=== PATIENT | female | born 1990 | race American Indian/Alaskan Native ===

== ENCOUNTER 2017-09-16 18:20 | Emergency (ER) | payer OTHER ==
[~2017-09-16] VITALS: Ht 149.9 cm; Wt 86.2 kg
[~2017-09-16 18:20] MED LIST: FLONASE ALLERG9.9 ML NS; GLUCOPHAGE500 MG PO; ZESTRIL10 MG PO; ZOLOFT100 MG PO
[2017-09-16] MEDS ORDERED: TYLENOL COLD &1 EACH PO (19:14)
[2017-09-16] MEDS ORDERED: TAMIFLU75 MG PO (20:22)
== END 2017-09-16 20:45 | disposition home or self-care (01) ==
LOC: ED 18:20
DX: J10.1 Influenza due to other identified influenza virus with other respiratory manifestations (principal); Z88.0 Allergy status to penicillin; Z90.89 Acquired absence of other organs; Z79.84 Long term (current) use of oral hypoglycemic drugs; Z79.899 Other long term (current) drug therapy
CPT/HCPCS: 87502; 99283

== ENCOUNTER → 2022-08-09 | Emergency (ER) | payer BC ==
[~2022-08-09] VITALS: Ht 149.9 cm; Wt 90.7 kg
[~2022-08-09] MED LIST changes: +FLUOXETINE HCL20 MG PO; +LIDOCAINE HCL100 ML MT; +LISINOPRIL5 MG PO; +PIOGLITAZONE HC45 MG PO; +ROSUVASTATIN CA10 MG PO; +TAMIFLU75 MG PO; +TYLENOL COLD &1 EACH PO
== END ==
LOC: ED 20:25
DX: J02.9 Acute pharyngitis, unspecified (principal); Z88.0 Allergy status to penicillin; Z79.899 Other long term (current) drug therapy; Z79.84 Long term (current) use of oral hypoglycemic drugs; Z20.822 Contact with and (suspected) exposure to COVID-19
CPT/HCPCS: 87081; 87502; 87880; 99283; U0003

== ENCOUNTER 2024-11-09 18:46 | Inpatient (IN) | payer BC ==
[~2024-11-09] VITALS: Ht 149.9 cm; Wt 88.5 kg
[2024-11-09 20:58] VITALS: BP 147/84
[2024-11-09] MEDS ORDERED: LIDOCAINE 2% VISCOUS 6 ML SYR TOP ONE ×2 (21:00)
[2024-11-09] MEDS ORDERED: miSOPROStoL 25 MCG TAB PV SCH (21:00)
[2024-11-09] MEDS ORDERED: CALCIUM CARBONATE 500 MG CHEW PO PRN (21:00)
[2024-11-09] MEDS ORDERED: INSULIN NPH HUMAN ISOPHANE 100 UNIT/ML ML SUB-Q SCH (21:00)
[2024-11-09] MEDS ORDERED: MAGNESIUM HYDROXIDE/AL HYDROX 30 ML CUP PO PRN (21:00)
[2024-11-09] MEDS ORDERED: Insulin Regular, Human 100 UNIT/ML ML SUB-Q ONE (21:15)
[2024-11-09 21:23] LABS: BASOPHILS 0.5 % (0-2); HEMATOCRIT 36.3 % (35.0-50.0); HEMOGLOBIN 12.2 g/dL (12.0-18.0); LYMPHOCYTES 15.6 % (24-44); MCH 28.6 (27-36); MCHC 33.5 g/dl (30-36); MCV 85.5 fl (81-99); MONOCYTES 5.5 % (0-12); NEUTROPHILS 77.4 % (39-80); PLATELET COUNT 201 K/uL (140-440); RBC 4.25 M/ul (4.3-5.7); RDW 14.1 (10.5-15.0)
[2024-11-09 21:38] LABS: CREATININE, RANDOM URINE 43.29 mg/dL (NOT ESTABLISHED); PROTEIN/CREATININE RATIO 0.48 mg/mg (0.010-0.107)
[2024-11-09 21:45] LABS: ALBUMIN 2.2 g/dL (3.4-5.0); ALBUMIN/GLOBULIN RATIO 0.54 (1.1-2.4); ANION GAP 13.7 (7-21); BILIRUBIN, TOTAL 0.5 mg/dL (0.2-1.0); BUN/CREATININE RATIO 17.24 (6.0-28.6); CREATININE, SERUM 0.58 mg/dL (0.55-1.02); POTASSIUM 3.7 mmol/L (3.5-5.1); PROTEIN, TOTAL 6.3 g/dL (6.4-8.2)
[2024-11-09 21:49] LABS: AMPHETAMINES, URINE NEGATIVE (NEGATIVE); BARBITURATES, URINE NEGATIVE (NEGATIVE); BENZODIAZEPINE, URINE NEGATIVE (NEGATIVE); BUPRENORPHINE, URINE NEGATIVE (NEGATIVE); CANNABINOID, URINE NEGATIVE (NEGATIVE); COCAINE, URINE NEGATIVE (NEGATIVE); ECSTASY, URINE NEGATIVE (NEGATIVE); FENTANYL, URINE NEGATIVE (NEGATIVE); METHADONE, URINE NEGATIVE (NEGATIVE); OPIATES, URINE NEGATIVE (NEGATIVE); OXYCODONE, URINE NEGATIVE (NEGATIVE); PHENCYCLIDINE, URINE NEGATIVE (NEGATIVE)
[2024-11-09 21:57] LABS: ABO A; ANTIBODY SCREEN NEGATIVE; RH POSITIVE
[2024-11-09] MEDS ORDERED: INSULIN GLARGINE-YFGN 100 UNIT/ML ML SUB-Q SCH (23:00)
[2024-11-10] MEDS ORDERED: miSOPROStoL 25 MCG TAB PV SCH
[2024-11-10] MEDS ORDERED: DEXTROSE 5% - NACL 0.45% 1,000 ML IV SCH (00:15)
[2024-11-10] MEDS ORDERED: IBLOOD GLUCOSE TEST STRIP 1 EA TEST XX PRN (00:15)
[2024-11-10] MEDS ORDERED: DEXTROSE 50% 50 ML SYR IV PRN ×2 (00:15)
[2024-11-10] MEDS ORDERED: INSULIN REGULAR IN 0.9 % NACL 100 ML IV SCH (00:15)
[2024-11-10] MEDS ORDERED: Insulin Regular, Human 100 UNIT/ML ML IV PRN (00:15)
[2024-11-10] MEDS ORDERED: DEXTROSE 5% 1,000 ML IV PRN (00:15)
[2024-11-10] MEDS ORDERED: GLUCAGON,HUMAN RECOMBINANT 1 MG/ML VIAL SUB-Q PRN (00:15)
[2024-11-10] MEDS ORDERED: SODIUM CHLORIDE 0.45% 1,000 ML IV SCH (00:15)
[2024-11-10] MEDS ORDERED: IBLOOD GLUCOSE TEST STRIP 1 EA TEST XX SCH (01:00)
[2024-11-10] MEDS ORDERED: IBLOOD GLUCOSE TEST STRIP 1 EA TEST VI SCH (01:00)
[2024-11-10] MEDS ORDERED: Insulin Regular, Human 100 UNIT/ML ML IV ONE (07:00)
[2024-11-10] MEDS ORDERED: INSULIN GLARGINE-YFGN 100 UNIT/ML ML SUB-Q ONE (07:00)
[2024-11-10] MEDS ORDERED: ROPIVACAINE 0.2% 200 ML BAG ONE (09:48)
[2024-11-10] MEDS ORDERED: fentaNYL citrate 100 MCG/2 ML VIAL ONE (09:48)
[2024-11-10] MEDS ORDERED: LACTATED RINGER'S 500 ML IV PRN (10:30)
[2024-11-10] MEDS ORDERED: ROPIVACAINE 0.2% 200 ML BAG EPIDURAL SCH (10:30)
[2024-11-10] MEDS ORDERED: ePHEDrine sulfate 5 MG/ML SYRINGE IV PRN (10:30)
[2024-11-10] MEDS ORDERED: LACTATED RINGER'S 2,000 ML IV ONE (10:30)
[2024-11-10] MEDS ORDERED: OXYTOCIN/0.9 % SODIUM CHLORIDE 500 ML IV SCH (11:30)
[2024-11-10] MEDS ORDERED: TERBUTALINE SULFATE 1 MG/ML AMP SUB-Q ONE (16:30)
[2024-11-10] MEDS ORDERED: INSULIN NPH HUMAN ISOPHANE 100 UNIT/ML ML SUB-Q SCH (21:00)
[2024-11-11] MEDS ORDERED: HYDROCORTISONE ACETATE 25 MG SUPP PR PRN (00:30)
[2024-11-11] MEDS ORDERED: MAGNESIUM HYDROXIDE/AL HYDROX 30 ML CUP PO PRN (00:30)
[2024-11-11] MEDS ORDERED: IBUPROFEN 600 MG TAB PO PRN (00:30)
[2024-11-11] MEDS ORDERED: WITCH HAZEL/GLYCERIN 1 EA PAD TOP PRN (00:30)
[2024-11-11] MEDS ORDERED: CALCIUM CARBONATE 500 MG CHEW PO PRN (00:30)
[2024-11-11] MEDS ORDERED: BENZOCAINE 60 ML AEROSOL TOP PRN (00:30)
[2024-11-11] MEDS ORDERED: LIDOCAINE 2% VISCOUS 6 ML SYR TOP ONE ×2 (00:30)
[2024-11-11] MEDS ORDERED: MAGNESIUM HYDROXIDE 30 ML UDC PO PRN (00:30)
[2024-11-11] MEDS ORDERED: ACETAMINOPHEN 325 MG TAB PO PRN (00:30)
[2024-11-11] MEDS ORDERED: OXYTOCIN/0.9 % SODIUM CHLORIDE 500 ML IV SCH ×2 (00:30→06:00)
[2024-11-11] MEDS ORDERED: IBLOOD GLUCOSE TEST STRIP 1 EA TEST XX SCH (07:00)
[2024-11-11] MEDS ORDERED: SENNOSIDES/DOCUSATE 1 EA TAB PO SCH (09:00)
[2024-11-11] MEDS ORDERED: IBLOOD GLUCOSE TEST STRIP 1 EA TEST VI SCH (09:00)
[2024-11-11] MEDS ORDERED: FLUOXETINE HCL 20 MG CAP PO SCH (10:57)
[2024-11-11] MEDS ORDERED: metFORMIN HCL 500 MG TAB PO SCH ×2 (12:35→21:00)
[2024-11-11] MEDS ORDERED: ACETAMINOPHEN 500 MG TAB PO PRN (15:15)
== END 2024-11-13 09:50 | disposition home or self-care (01) | DRG 807 ==
LOC: FBCO 18:46 → FBC 20:32
PROVIDERS: ADMIT Advanced Practice Midwife; ATTEND Advanced Practice Midwife
PROC: 10E0XZZ Delivery of Products of Conception, External Approach (ICD-10-PCS; principal; 2024-11-09)
PROC: 0KQM0ZZ Repair Perineum Muscle, Open Approach (ICD-10-PCS; 2024-11-09)
PROC: 3E0R3BZ Introduction of Anesthetic Agent into Spinal Canal, Percutaneous Approach (ICD-10-PCS; 2024-11-09)
PROC: 00HU33Z Insertion of Infusion Device into Spinal Canal, Percutaneous Approach (ICD-10-PCS; 2024-11-09)
DX: O24.424 Gestational diabetes mellitus in childbirth, insulin controlled (principal); Z37.0 Single live birth; O76 Abnormality in fetal heart rate and rhythm complicating labor and delivery; O14.94 Unspecified pre-eclampsia, complicating childbirth; O69.81X0 Labor and delivery complicated by cord around neck, without compression, not applicable or unspecified; O70.1 Second degree perineal laceration during delivery; Z3A.37 37 weeks gestation of pregnancy; Z90.49 Acquired absence of other specified parts of digestive tract
CPT/HCPCS: 01960; 36415; 80053; 80307; 82570; 84156; 85025; 86850; 86900; 86901; A9270; J1815; J2795; J3010; J3105; J7042; J7121

== ENCOUNTER 2025-03-21 17:48 | Emergency (ER) | payer BC, OTHER ==
[~2025-03-21] VITALS: Ht 152.4 cm; Wt 81.0 kg
[2025-03-21 19:03] VITALS: BP 125/84
== END 2025-03-21 19:03 | disposition home or self-care (01) ==
LOC: ED 17:48
DX: S09.90XA Unspecified injury of head, initial encounter (principal); Z88.0 Allergy status to penicillin; W18.30XA Fall on same level, unspecified, initial encounter; Z90.49 Acquired absence of other specified parts of digestive tract; Z79.84 Long term (current) use of oral hypoglycemic drugs
CPT/HCPCS: 70450; 99284-25